=== PATIENT | female | born 1960 | race Caucasian/White ===

== ENCOUNTER 2023-11-16 11:11 | Emergency (ER) | payer MEDICAID ==
[~2023-11-16] VITALS: Ht 160 cm; Wt 68.7 kg
[2023-11-16 11:21] VITALS: BP 96/57; PULSE 55; RESP 16; TEMP 96.6; O2SAT 96
== END 2023-11-16 12:41 | disposition home or self-care (01) ==
LOC: ER 11:11
DX: S40.011A Contusion of right shoulder, initial encounter (principal); W19.XXXA Unspecified fall, initial encounter; Y93.89 Activity, other specified; Y92.89 Other specified places as the place of occurrence of the external cause; Y99.8 Other external cause status
CPT/HCPCS: 73030; 99284; A4565